=== PATIENT | female | born 1990 | race Caucasian/White ===

== ENCOUNTER 2016-10-10 17:00 | Emergency (ER) | payer OTHER ==
[~2016-10-10] VITALS: Ht 170.2 cm; Wt 92.4 kg
[~2016-10-10 17:00] MED LIST: Motrin PO; Percocet 7.5/325,End PO
[2016-10-10] MEDS ORDERED: FLEXERIL10 MG PO (18:43)
[2016-10-10] MEDS ORDERED: LORTAB 5-325 M1 EACH PO (18:43)
[2016-10-10] MEDS ORDERED: NAPROSYN500 MG PO (18:43)
[2016-10-10 18:52] VITALS: BP 113/63
== END 2016-10-10 18:53 | disposition home or self-care (01) ==
LOC: EME → EDBD 17:00 → EME 18:53
DX: S16.1XXA Strain of muscle, fascia and tendon at neck level, initial encounter (principal); S46.919A Strain of unspecified muscle, fascia and tendon at shoulder and upper arm level, unspecified arm, initial encounter; G89.29 Other chronic pain; V49.40XA Driver injured in collision with unspecified motor vehicles in traffic accident, initial encounter; Z87.891 Personal history of nicotine dependence
CPT/HCPCS: 99281; 99284